=== PATIENT | female | born 1955 | race Caucasian/White ===

== ENCOUNTER 2017-01-02 08:23 | Outpatient (CLI) | payer BC ==
[~2017-01-02 08:23] MED LIST: Iopamidol 370 76% 100 ML VIAL ONE
--- NOTE | 2017-01-02 15:00 | CT ---
CT ABDOMEN AND PELVIS WITH AND WITHOUT CONTRAST: Multiple axial tomograms were obtained through the abdomen and pelvis pre- and post-IV contrast. Pos tcontrast images were obtained in the portal venous and delayed venous phases following urographic pr otocol. HISTORY: Hematuria. Right side pain. FINDINGS: Lung bases are clear. Review of the precontrast images shows a large calculus in the right mid pole collecting structures m easuring up to 1.0 cm. There are at least 3 other smaller nonobstructing calculi in the lower pole c ollecting structures of the right kidney measuring in the 3 mm range. No calculus is seen in the left kidney. Both kidneys show numerous cystic lesions. On the right, there is a 3.5 cm cyst in the superior pole of the right kidney. There are other smaller subcentimeter cysts in the right kidney too small to a dequately characterize. On the left, there is a large 3.8 cm cyst superior pole left kidney. There is an exophytic cyst from the anterior superior left kidney measuring 2.0 cm. There is an exophytic cyst from the posterior m id left kidney measuring 2.5 cm. There are other tiny low-density lesions in the left kidney as well . Review of the densities of these lesions reveals the 2 superior pole cysts have densities in the 10-1 1 Hounsfield unit range. On the left, the exophytic cysts both show high densities with both measuri ng in the 16-17 Hounsfield unit range. No significant enhancement identified indicating that these p robably represent hyperdense cystic lesions. Otherwise, no evidence of an enhancing renal mass lesion. The urinary bladder is partially distended and appears unremarkable. Contrast is seen in the urinary bladder on the delayed sequence. Liver, spleen, pancreas, and adrenal glands unremarkable. Bowel loops appear unremarkable. Aorta normal caliber. No adenopathy identified. On the delayed sequence, contrast is seen in the collecting structures, and there is no filling defec t identified. IMPRESSION: 1. Nonobstructing calculi in the upper collecting structures of the right kidney as described. 2. There are bilateral renal cystic lesions. There are at least 2 exophytic cysts on the left which have increased densities recorded in the 16-17 Hounsfield unit range. No significant enhancement id entified. Hyperdense cysts would be suspected given the overall appearance and lack of enhancement. Followup noncontrast scan could be performed in 6 months to confirm stability of these renal cystic lesions. 3. No evidence of acute process. POS: [facility]
== END 2017-01-02 08:24 | disposition home or self-care (01) ==
LOC: CT 08:23
PROVIDERS: ATTEND Urology
DX: R31.29 Other microscopic hematuria (principal); N28.1 Cyst of kidney, acquired
CPT/HCPCS: 74178

== ENCOUNTER → 2017-02-20 | Outpatient (CLI) | payer BC | LOC: BICRAD 13:30 | PROVIDERS: ATTEND Urology | DX: N20.0 Calculus of kidney (principal); N28.1 Cyst of kidney, acquired; R31.29 Other microscopic hematuria | CPT/HCPCS: 74018 ==

== ENCOUNTER 2017-03-01 09:56 | Outpatient (CLI) | payer BC | END 2017-03-01 09:57 | disposition home or self-care (01) | LOC: BICULT 09:56 | PROVIDERS: ATTEND Urology | DX: N20.0 Calculus of kidney (principal); R31.29 Other microscopic hematuria; N28.1 Cyst of kidney, acquired | CPT/HCPCS: 76770 ==

== ENCOUNTER 2017-05-22 10:38 | Outpatient (CLI) | payer BC ==
[2017-05-22 12:15] LABS: Bilirubin Negative (Negative); Blood, Urine Trace (Negative); Clarity CLEAR (Clear); Glucose, Urine (Dipstick) Negative (Negative); Leukocyte Negative (Negative); Nitrite Negative (Negative); Protein, Urine (Dipstick) Negative (Neg-Trace); Urobilinogen 0.2 mg/dL (0.2-1.0); pH, Urine 5.5 (5.0-9.0)
[2017-05-22 12:16] LABS: Pathc Cast-AUWi Flag 0.29 (0-2.49)
[2017-05-22 12:24] LABS: Prothrombin Time 13.4 SEC (12.0-14.7)
[2017-05-22 12:25] LABS: PTT 29.7 SEC (22.9-36.1)
[2017-05-22 12:34] LABS: Anion Gap 14 mmol/L (10-20); BUN (Urea Nitrogen) 15 mg/dL (9.8-20.1); Calc. Creatinine Clearance 0 mL/min (70-130); Calcium 9.9 mg/dL (7.8-10.44); Carbon Dioxide 23 mmol/L (22-29); Chloride 106 mmol/L (98-107); Estimated GFR-MDRD 45; Glucose 89 mg/dL (70-105); Sodium 139 mmol/L (136-145)
[2017-05-22 12:44] LABS: Hemoglobin 16.5 g/dL (12.0-16.0); Mean Corpuscular HGB CONC 33.2 g/dL (32.0-36.0); Mean Corpuscular Hemoglobin 33.4 pg (27.0-31.0); Mean Platelet Volume 7.3 fL (7.4-10.4); Platelet Count 274 thou/uL (130-400); RBC Distribution Width 11.8 % (11.5-14.5); Red Blood Cell (RBC) Count 4.94 mill/uL (4.20-5.40); White Blood Cell (WBC) Count 6.9 thou/uL (4.8-10.8)
[2017-05-22 12:45] LABS: Bacteria/HPF None Seen HPF (None Seen); Hyaline Casts/LPF NONE SEEN LPF (0-3 Hyaline); RBC/HPF None Seen HPF (0-3); Squamous Epithelial 0-3 HPF (0-3); WBC/HPF None Seen HPF (0-3)
--- NOTE | 2017-05-28 08:37 | EKG ---
Test Reason : Blood Pressure : / mmHG Vent. Rate : 064 BPM Atrial Rate : 064 BPM P-R Int : 154 ms QRS Dur : 142 ms QT Int : 446 ms P-R-T Axes : 036 082 019 degrees QTc Int : 460 ms Normal sinus rhythm Right bundle branch block Inferior infarct , age undetermined Abnormal ECG No previous ECGs available Confirmed by SAVANNAH LARA MD ([id number]) on 05/28/2017 8:37:12 AM Referred By: BROOKE Confirmed By:SAVANNAH LARA MD
== END 2017-05-22 10:39 | disposition home or self-care (01) ==
LOC: LABBT 10:38
PROVIDERS: ATTEND Urology
DX: Z01.818 Encounter for other preprocedural examination (principal); N20.0 Calculus of kidney
CPT/HCPCS: 80048; 81001; 85027; 85610; 85730; 87086; 93005; 93010

== ENCOUNTER 2017-06-05 09:28 | Day surgery (SDC) | payer BC, OTHER ==
[2017-05-22 10:53] VITALS: BMI 29.2
[2017-06-05] MEDS ORDERED: Levofloxacin 500 mg/D5W 100 ml Premix Bag ONE (10:26)
[2017-06-05] MEDS ORDERED: Fentanyl 100 MCG/2 ML VIAL ONE (11:07)
[2017-06-05] MEDS ORDERED: Iothalamate Meglumine 60% 50 ML VIAL FS ONE (11:10)
--- NOTE | 2017-06-05 11:28 | RAD ---
KUB: Indication: History of pre op evaluation. Comparison: CT abdomen and pelvis, 01-02-17. FINDINGS: Large 1.1 cm stone involving the superior pole of the right kidney is stable to comparison CT. No add itional suspicious calcifications seen overlying the renal collecting systems. There are scattered va scular calcifications and small phleboliths seen within the lower pelvis. There is mild scattered deg enerative change. There is a small bone island within the right ileum. IMPRESSION: Stable right nephrolithiasis. POS: [facility]
--- NOTE | 2017-06-05 13:03 | RAD ---
RETROGRADE PYELOGRAM: HISTORY: Right renal calculus. FINDINGS/IMPRESSION: Three spot fluoroscopic images from a right-sided retrograde pyelogram demonstrate opacification of t he pelvocaliceal system and right ureter and placement of a right ureteral stent. POS: [facility]
[2017-06-05] MEDS ORDERED: Promethazine HCl 25 MG/ML VIAL ONE (13:07)
[2017-06-05] MEDS ORDERED: Oxybutynin 5 MG TAB ONE (13:22)
[2017-06-05] MEDS ORDERED: Phenazopyridine HCl 97.5 MG TABLET ONE ×2 (13:23)
--- NOTE | 2017-06-05 13:49 | OP ---
DATE OF PROCEDURE: 06/05/2017 PREOPERATIVE DIAGNOSES: A 61-year-old female with, 1. A history of right 1.2 cm upper pole stone, Hounsfield unit over 1000. 2. Multiple right punctate renal lithiasis, nonobstructing. 3. History of bilateral renal cysts. 4. Chronic back pain. POSTOPERATIVE DIAGNOSES: A 61-year-old female with, 1. A history of right 1.2 cm upper pole stone, Hounsfield unit over 1000. 2. Multiple right punctate renal lithiasis, nonobstructing. 3. History of bilateral renal cysts. 4. Chronic back pain. PROCEDURE: Cystoscopy, right balloon dilatation of the distal intramural ureter, flexible ureterosco py, pyeloscopy, laser lithotripsy of large right upper pole renal stone, basket extraction of stone f ragments, 6 x 22 double-J ureteral stent placement with distal tail in situ. SURGEON: Perla Peterson D.O. ANESTHESIA: General. COMPLICATIONS: None apparent. DISPOSITION: To the recovery room in stable condition. SPECIMEN: Stone for chemical analysis. INTRAOPERATIVE FINDINGS: Large right upper pole renal stone, very dense in nature. INDICATIONS FOR PROCEDURE AND HISTORY: This is a 61-year-old female with history of microscopic oscar turia and tobacco abuse, who presented for workup. CT demonstrated multiple renal lithiasis as above . The patient has a history of chronic lower back pain. I did inform the patient that her discomfor t is most likely musculoskeletal as none of her stones are obstructing in nature. She desired to pro ceed with elective stone treatment. We discussed risks and benefits and indications for ESWL versus ureteroscopy and laser lithotripsy. I did not recommend PCNL given the stone size, less than 2.5-2 c m. She does present with a large stone in the right upper pole very dense in nature and possible sec ondary procedure reviewed. Due to her stone distance and density, we discussed higher stone free rat e with ureteroscopy, laser lithotripsy, and she desired to proceed with more definitive treatment wit h laser lithotripsy, ureteroscopy. Risks and complications including, but not limited to, bleeding, pain, infection, injury to adjacent organs, urosepsis, stricture formation, possible injury to the re nal kidney and bladder, stricture formation reviewed and she desired to proceed without reservation. DESCRIPTION OF THE PROCEDURE: After an informed consent is signed, the patient is taken to the [facility] room, placed in a dorsal lithotomy position with the genital area prepped and draped in the ua surgical sterile fashion. A 21-Nepalese cystoscope was utilized for cystoscopy, which demonstrated n ormal bladder mucosa with no evidence of bladder tumor, stones, or lesions. The UO was identified in normal anatomical location. An open-ended catheter was utilized to intubate the right UO and a retr ograde pyelogram performed demonstrating no evidence of filling defect or hydronephrosis. At this ti in, a 0.35 sensor wire was placed into the right upper pole. A [employer] 4 cm 12-Nepalese ball oon dilator was utilized to dilate the intramural ureter. Pressure was held for approximately 1-2 mi nutes. Subsequently, we passed an 11/13 Nepalese x 28 cm navigator to the proximal ureter without diff iculty. At this time, we passed a flexible ureteroscope over the working wire. Of note, prior to ba lloon dilatation, we passed a 10-Nepalese dual-lumen access sheath through the working wire and a secon d safety wire, 0.35 Super Stiff, was placed. The safety wire was secured, and we passed a navigator through the working Super Stiff wire. We passed a flexible ureteroscope over the working Super Stiff wire to the level of the right upper pole and the stone was easily visualized. This was a very larg e dense-appearing stone using 365 micron laser fiber at a dust setting; we lasered the stone into mul tiple pieces. At the end of the procedure where there were fragments that we treated with basket ext raction, some did migrate into the most upper pole portion, we basket extracted these. At the end of the procedure, what remained were tiny dust-like stone debris, which most likely she will pass on he r own given the small size. Those small-sized stones were unable to be lasered or basket extracted g iven their small nature. Those that were amendable to be lasered and basket extracted were retrieved and laser lithotripsied accordingly. At this time, we surveyed the ureter. There was no evidence o f ureteral trauma, ureteral stone burden of concern. The sheath was completely removed, and using a cystoscope, a 6 x 22 double-J ureteral stent was passed with the proximal coil in the upper pole and distal coil with adequate redundancy of the bladder. She tolerated the procedure well. She is disch arged with ciprofloxacin for 5 days and one prior to cystoscopy stent pull in my office, Azo p.r.n., [facility] for 10 days, Colace p.r.n., [place] 5/325 mg #50. KUB x-ray prescription provided. She is in structed to come to my office on 06/15/2017, next , at 08:15 with KUB one hour prior to the a ppointment. If there is no gross evidence of ureteral calculi of concern, we will perform local cyst oscopy stent pull.
== END 2017-06-05 15:10 | disposition home or self-care (01) ==
LOC: SDC 09:28
PROVIDERS: ATTEND Urology
PROC: 0T768DZ Dilation of Right Ureter with Intraluminal Device, Via Natural or Artificial Opening Endoscopic (ICD-10-PCS; principal; 2017-06-05)
PROC: 0TF38ZZ Fragmentation in Right Kidney Pelvis, Via Natural or Artificial Opening Endoscopic (ICD-10-PCS; principal; 2017-06-05)
DX: N20.0 Calculus of kidney (principal); M54.9 Dorsalgia, unspecified; G89.29 Other chronic pain; F17.210 Nicotine dependence, cigarettes, uncomplicated; I10 Essential (primary) hypertension; E78.00 Pure hypercholesterolemia, unspecified; K21.9 Gastro-esophageal reflux disease without esophagitis; M19.90 Unspecified osteoarthritis, unspecified site; F32.9 Major depressive disorder, single episode, unspecified; Z79.899 Other long term (current) drug therapy; Z88.2 Allergy status to sulfonamides; Z88.5 Allergy status to narcotic agent; Z88.8 Allergy status to other drugs, medicaments and biological substances; Z88.6 Allergy status to analgesic agent; Z98.890 Other specified postprocedural states
CPT/HCPCS: 74018; 74420; 82365; 88300; 96374; C1758; C1769; J1956; J2550; J3010; Q9961

== ENCOUNTER 2017-06-15 08:06 | Outpatient (CLI) | payer BC, OTHER ==
--- NOTE | 2017-06-15 09:24 | RAD ---
SINGLE VIEW OF THE ABDOMEN: Comparison: 06-05-17 History: Renal calculi. FINDINGS: Single view of the abdomen shows a nonspecific, nonobstructed bowel gas pattern. There is a right reyes ed ureteral stent which appears in good position. The previously seen large calcification projecting over the right kidney is no longer present. There may be a small calcification projecting over the l ower pole of the right kidney. No calcifications are seen along the stent. Vascular calcifications ar e seen in the pelvis. IMPRESSION: Possible small residual calcification in the lower pole of the right kidney. The previously seen larg e calcification is no longer identified. POS: [facility]
== END 2017-06-15 08:07 | disposition home or self-care (01) ==
LOC: RAD 08:06
PROVIDERS: ATTEND Urology
DX: N20.0 Calculus of kidney (principal)
CPT/HCPCS: 74018

== ENCOUNTER 2021-01-13 12:11 | Observation (INO) | payer BC, OTHER, SELFPAY ==
[2021-01-13 13:07] LABS: #Lymphocytes 1.5 thou/uL (1.20-3.40); #Monocytes 1.4 thou/uL (0.11-0.59); #Neutrophils 14.7 thou/uL (1.40-6.50); %Basophils 0.1 % (0.0-1.0); %Eosinophils 0.2 % (0.0-10.0); %Lymphocytes 8.6 % (21.0-51.0); %Monocytes 8.1 % (0.0-10.0); Hemoglobin 11.9 g/dL (12.0-16.0); Mean Corpuscular HGB CONC 33.1 g/dL (32.0-36.0); Mean Corpuscular Hemoglobin 33.6 pg (27.0-31.0); Mean Platelet Volume 7.3 fL (7.4-10.4); Platelet Count 236 thou/uL (130-400); RBC Distribution Width 12.4 % (11.5-14.5); Red Blood Cell (RBC) Count 3.53 mill/uL (4.20-5.40); White Blood Cell (WBC) Count 17.7 thou/uL (4.8-10.8)
[2021-01-13] MEDS ORDERED: Ondansetron PF 4 MG/2 ML Vial ONE ×3 (13:17→21:01)
[2021-01-13 13:34] LABS: ALT (SGPT) 8 U/L (8-55); AST (SGOT) 13 U/L (5-34); Albumin 3.1 g/dL (3.4-4.8); Alkaline Phosphatase 57 U/L (40-110); Anion Gap 13 mmol/L (10-20); BUN (Urea Nitrogen) 20 mg/dL (9.8-20.1); Bilirubin, Total 1.5 mg/dL (0.2-1.2); Calc. Creatinine Clearance 0 mL/min (70-130); Calcium 8.2 mg/dL (7.8-10.44); Carbon Dioxide 20 mmol/L (23-31); Chloride 105 mmol/L (98-107); Globulin 2.7 g/dL (2.4-3.5); Glucose 89 mg/dL (80-115); Potassium 3.3 mmol/L (3.5-5.1); Protein, Total 5.8 g/dL (5.8-8.1); Sodium 135 mmol/L (136-145)
[2021-01-13 14:16] LABS: Bacteria/HPF None Seen HPF (None Seen); Bilirubin 1+ (Negative); Blood, Urine 2+ (Negative); Clarity Clear (Clear); Glucose, Urine (Dipstick) Normal (Negative); Ketone, Urine 10 mg/dL (Negative); Leukocyte 500 Leu/uL (Negative); Nitrite Negative (Negative); Protein, Urine (Dipstick) 50 mg/dL (Neg-Trace); RBC/HPF 21-50 HPF (0-3); Squamous Epithelial 0-3 HPF (0-3); WBC/HPF Greater than 50 HPF (0-3); pH, Urine 5.5 (5.0-9.0)
[2021-01-13] MEDS ORDERED: cefTRIAXone\\ROCEPHIN 1 GM VIAL ONE (15:37)
[2021-01-13 17:23] LABS: SARS-CoV-2 NAA Rapid Test Not Detected (NotDetected)
[2021-01-13] MEDS ORDERED: Bisacodyl 5 MG TAB PO PRN (18:26)
[2021-01-13] MEDS ORDERED: Guaifenesin DM 100-10/5 ML UDCUP PO PRN (18:26)
[2021-01-13] MEDS ORDERED: Bisacodyl 10 MG SUPP PR PRN (18:26)
[2021-01-13] MEDS ORDERED: Ondansetron PF 4 MG/2 ML Vial IVP PRN (18:26)
[2021-01-13] MEDS ORDERED: Nicotine 21 MG PATCH TD SCH (18:30)
[2021-01-13] MEDS ORDERED: Melatonin 3 MG TAB PO PRN (18:38)
[2021-01-13] MEDS ORDERED: Iothalamate Meglumine 60% 50 ML VIAL FS ONE (19:33)
[2021-01-13] MEDS ORDERED: Fentanyl 100 MCG/2 ML VIAL ONE ×2 (19:52→20:43)
[2021-01-13] MEDS ORDERED: PROPOFOL 200 MG/20 ML VIAL ONE (20:01)
[2021-01-13] MEDS ORDERED: Lidocaine 1% PF 5 ML VIAL ONE (20:01)
[2021-01-13] MEDS ORDERED: Phenylephrine 10 MG/ML VIAL ONE (20:01)
[2021-01-13] MEDS ORDERED: Dexamethasone 20 MG/5 ML VIAL ONE (20:01)
[2021-01-13] MEDS ORDERED: Morphine Sulfate 2 MG/ML SYRINGE SLOW IVP PRN (20:38)
[2021-01-13] MEDS ORDERED: Ondansetron HCl/PF 4 MG/2 ML Vial IVP PRN (20:38)
[2021-01-13] MEDS ORDERED: HYDROmorphone 2 MG/ML VIAL SLOW IVP PRN (20:38)
[2021-01-13] MEDS ORDERED: PACU-Morphine 4MG/ML VIAL SLOW IVP PRN (20:38)
[2021-01-13] MEDS ORDERED: Promethazine HCl 25 MG/ML VIAL IVPB PRN (20:38)
[2021-01-13] MEDS ORDERED: Promethazine HCl 25 MG/ML VIAL IM PRN (20:38)
[2021-01-13] MEDS ORDERED: Atorvastatin Calcium 20 MG TAB PO SCH (21:00)
[2021-01-13 22:11] VITALS: BMI 26.0
[2021-01-13] MEDS: Metoprolol Tartrate 25 MG TAB PO SCH (22:32)
[2021-01-13] MEDS: Sodium Chloride 0.9% 1,000 ML IV SCH (22:34)
[2021-01-14] MEDS ORDERED: Morphine 4 MG/ML VIAL SLOW IVP SCH (04:15)
[2021-01-14 05:29] LABS: #Lymphocytes 0.6 thou/uL (1.20-3.40); #Monocytes 0.1 thou/uL (0.11-0.59); %Lymphocytes 5.1 % (21.0-51.0); %Monocytes 1.2 % (0.0-10.0); %Neutrophils 93.7 % (42.0-75.0); Hemoglobin 11.9 g/dL (12.0-16.0); Mean Corpuscular HGB CONC 32.8 g/dL (32.0-36.0); Mean Corpuscular Hemoglobin 33.8 pg (27.0-31.0); Mean Platelet Volume 7.7 fL (7.4-10.4); Platelet Count 238 thou/uL (130-400); RBC Distribution Width 12.5 % (11.5-14.5); Red Blood Cell (RBC) Count 3.51 mill/uL (4.20-5.40); White Blood Cell (WBC) Count 11.7 thou/uL (4.8-10.8)
[2021-01-14 06:07] LABS: ALT (SGPT) 10 U/L (8-55); AST (SGOT) 17 U/L (5-34); Albumin 3.1 g/dL (3.4-4.8); Alkaline Phosphatase 61 U/L (40-110); Anion Gap 18 mmol/L (10-20); BUN (Urea Nitrogen) 26 mg/dL (9.8-20.1); Bilirubin, Total 0.7 mg/dL (0.2-1.2); Calc. Creatinine Clearance 39 mL/min (70-130); Calcium 8.7 mg/dL (7.8-10.44); Carbon Dioxide 16 mmol/L (23-31); Chloride 109 mmol/L (98-107); Globulin 2.7 g/dL (2.4-3.5); Glucose 99 mg/dL (80-115); Potassium 4.2 mmol/L (3.5-5.1); Protein, Total 5.8 g/dL (5.8-8.1); Sodium 139 mmol/L (136-145)
[2021-01-14] MEDS ORDERED: PARoxetine 20 MG TAB PO SCH (09:00)
[2021-01-14] MEDS ORDERED: Lisinopril 2.5 MG TAB PO SCH (09:00)
[2021-01-14] MEDS ORDERED: Pantoprazole 40 MG GRANULES PACKET PO SCH (09:00)
[2021-01-14 12:36] VITALS: BP 130/73; TEMP 97.9
[2021-01-14] MEDS ORDERED: Phenazopyridine HCl 100 MG TAB PO PRN (12:44)
[2021-01-14] MEDS: Sodium Chloride 0.9% 1,000 ML IV SCH (13:31)
[2021-01-14] MEDS: Metoprolol Tartrate 25 MG TAB PO SCH (13:32)
[2021-01-14] MEDS ORDERED: Polyethylene Glycol 3350 17 GM Packet PO SCH (14:45)
[2021-01-14] MEDS ORDERED: cefTRIAXone\\ROCEPHIN 1 GM in Sodium Chloride 0.9% 100 ML IVPB SCH (16:00)
[2021-01-16] MEDS ORDERED: FLU VACC QS2021-22(6MOS UP)/PF 60 MCG/0.5 ML SYRINGE IM ONE (09:00)
== END 2021-01-14 16:55 | disposition home or self-care (01) ==
LOC: ERS 12:11 → SDC/OP 17:35 → SJJU 18:26
PROVIDERS: ADMIT Student in an Organized Health Care Education/Training Program; ATTEND Internal Medicine
PROC: 0T768DZ Dilation of Right Ureter with Intraluminal Device, Via Natural or Artificial Opening Endoscopic (ICD-10-PCS; principal; 2021-01-13)
DX: N20.1 Calculus of ureter (principal); N10 Acute pyelonephritis; N17.9 Acute kidney failure, unspecified; E87.6 Hypokalemia; K76.0 Fatty (change of) liver, not elsewhere classified; I10 Essential (primary) hypertension; E78.5 Hyperlipidemia, unspecified; K57.30 Diverticulosis of large intestine without perforation or abscess without bleeding; F17.210 Nicotine dependence, cigarettes, uncomplicated; N13.5 Crossing vessel and stricture of ureter without hydronephrosis; Z87.442 Personal history of urinary calculi; Z88.2 Allergy status to sulfonamides; Z88.5 Allergy status to narcotic agent; Z88.6 Allergy status to analgesic agent; Z88.8 Allergy status to other drugs, medicaments and biological substances; Z20.822 Contact with and (suspected) exposure to COVID-19
CPT/HCPCS: 36415; 74420; 80053; 81003; 81015; 83605; 85025; 87040; 87086; 96365; 96375; C2617; G0378; J0696; J1100; J2270; J2370; J2405; J2704; J3010; J3490; J7050; Q9961-U8; U0002

== ENCOUNTER 2021-07-23 00:23 | Emergency (ER) | payer SELFPAY ==
[2021-07-23] MEDS ORDERED: Fentanyl 100 MCG/2 ML VIAL ONE ×2 (00:58→02:03)
[2021-07-23] MEDS ORDERED: Ondansetron PF 4 MG/2 ML Vial ONE (01:05)
[2021-07-23 01:14] LABS: #Basophils 0.1 thou/uL (0.0-0.2); #Eosinphils 0.3 thou/uL (0.0-0.7); #Lymphocytes 5.1 thou/uL (1.20-3.40); #Monocytes 1.1 thou/uL (0.11-0.59); #Neutrophils 8.6 thou/uL (1.40-6.50); %Basophils 0.8 % (0.0-1.0); %Eosinophils 2.1 % (0.0-10.0); %Lymphocytes 33.6 % (21.0-51.0); %Monocytes 7.1 % (0.0-10.0); %Neutrophils 56.4 % (42.0-75.0); Hemoglobin 15.8 g/dL (12.0-16.0); Mean Corpuscular HGB CONC 34.1 g/dL (32.0-36.0); Mean Corpuscular Hemoglobin 35.1 pg (27.0-31.0); Mean Platelet Volume 6.5 fL (7.4-10.4); Platelet Count 321 thou/uL (130-400); RBC Distribution Width 12.3 % (11.5-14.5); White Blood Cell (WBC) Count 15.2 thou/uL (4.8-10.8)
[2021-07-23 01:39] LABS: ALT (SGPT) 10 U/L (8-55); AST (SGOT) 16 U/L (5-34); Albumin 4.1 g/dL (3.4-4.8); Alkaline Phosphatase 113 U/L (40-110); Anion Gap 18 mmol/L (10-20); BUN (Urea Nitrogen) 26 mg/dL (9.8-20.1); Calc. Creatinine Clearance 0 mL/min (70-130); Calcium 10.1 mg/dL (7.8-10.44); Carbon Dioxide 20 mmol/L (23-31); Chloride 105 mmol/L (98-107); Globulin 3.3 g/dL (2.4-3.5); Glucose 131 mg/dL (80-115); Potassium 4.2 mmol/L (3.5-5.1); Protein, Total 7.4 g/dL (5.8-8.1); Sodium 139 mmol/L (136-145)
[2021-07-23 01:56] LABS: CKMB 2.8 ng/mL (0-6.6)
[2021-07-23] MEDS ORDERED: Enoxaparin Sodium 80 MG/0.8 ML SYRINGE ONE (02:03)
[2021-07-23] MEDS ORDERED: Nitroglycerin 50 MG/250 ML BOT 250 ML ONE (02:11)
[2021-07-23] MEDS ORDERED: Promethazine HCl 12.5 MG in Sodium Chloride 0.9% 50 ML IVPB SCH (02:30)
[2021-07-23] MEDS ORDERED: Lidocaine 1% (PF) 30 ML VIAL ONE (02:35)
[2021-07-23] MEDS ORDERED: Heparin 10,000 UNITS/ 10 ML VIAL ONE (02:35)
[2021-07-23 04:23] LABS: Bilirubin, Total 0.4 mg/dL (0.2-1.2)
== END 2021-07-23 03:20 | disposition short-term general hospital (02) ==
LOC: ERS 00:23
DX: I21.09 ST elevation (STEMI) myocardial infarction involving other coronary artery of anterior wall (principal); I10 Essential (primary) hypertension; I45.10 Unspecified right bundle-branch block; F17.210 Nicotine dependence, cigarettes, uncomplicated; D72.829 Elevated white blood cell count, unspecified; R77.8 Other specified abnormalities of plasma proteins; Z87.442 Personal history of urinary calculi; Z79.899 Other long term (current) drug therapy
CPT/HCPCS: 36415; 71045; 80053; 82553; 84484; 85025; 93005; 96365; 96372; 96375; 96376; J1644; J1650; J2001; J2405; J2550; J3010